=== PATIENT | male | born 1990 | race Caucasian/White ===

== ENCOUNTER 2021-06-09 11:28 | Emergency (ER) | payer BC ==
[2021-06-09 12:28] LABS: HEMOGLOBIN 16.2 gm/dl (14.0-17.5); RED BLOOD COUNT 5.25 M/UL (4.20-5.50); WHITE BLOOD COUNT 10.4 K/UL (4.5-11.0)
[2021-06-09 12:48] LABS: BUN/CREATININE RATIO 7 (0-10)
[2021-06-09] MEDS ORDERED: HYDROCODON-ACE1 EAC4 PO (15:08)
[2021-06-09] MEDS ORDERED: MACROBID 100 M100 MG PO (15:08)
== END 2021-06-09 16:02 | disposition home or self-care (01) ==
LOC: ER1 11:28
PROVIDERS: Emergency Medicine
DX: N13.2 Hydronephrosis with renal and ureteral calculous obstruction (principal)
CPT/HCPCS: 80053; 81001; 85025; 87086; 96374; 96375; 99284; J1885; J2270; J2405